=== PATIENT | male | born 1975 | race Caucasian/White ===

== ENCOUNTER 2019-05-12 12:31 | Emergency (ER) | payer MEDICARE, OTHER ==
[~2019-05-12] VITALS: Ht 177.8 cm; Wt 74.2 kg
[2019-05-12 12:36] VITALS: BP 129/68; PULSE 90; RESP 18; Ht 177.8 cm; Wt 74.2 kg
[2019-05-12] MEDS ORDERED: HYDROCODONE/APAP (5/325) TAB PO ONE (13:00)
[2019-05-12] MEDS ORDERED: CIPR500T4 PO (14:38)
[2019-05-12] MEDS ORDERED: IBUP-1542 PO (14:39)
[2019-05-12] MEDS ORDERED: ACET500C5 PO (14:48)
--- NOTE | 2019-05-12 15:03 | ERD ---
ER Documentation Chief Complaint Chief Complaint RT TESTICULAR PAIN X FEW WEEKS , WORSE TODAY HPI Patient is a 43-year-old male, past medical history of prostatitis, COPD, who presents to the ER for concerns of right testicular pain for last 3 weeks. Patient states he feels as if "my tubes are twisting". Patient states he has urinary urgency. He denies any frequency, hematuria, fevers, chills, nausea, vomiting or abdominal pain. Patient denies any chest pain or shortness of breath. Patient denies any penile discharge. ROS All systems reviewed and are negative except as per history of present illness. Medications Home Meds Active Scripts Acetaminophen* (Tylophen*) 500 Mg Capsule, 1 CAP PO Q6H PRN for PAIN AND OR ELEVATED TEMP, #20 CAP Prov:MARI CHATTERJEE PA-C 05/12/19 Ciprofloxacin Hcl* (Ciprofloxacin Hcl*) 500 Mg Tablet, 500 MG PO BID for 10 Days, TAB Prov:MARI CHATTERJEE PA-C 05/12/19 Discontinued Scripts Ibuprofen* (Motrin*) 600 Mg Tab, 600 MG PO Q6, #30 TAB Prov:MARI CHATTERJEE PA-C 05/12/19 Allergies Allergies: Coded Allergies: No Known Allergy (Unverified , 05/12/19) PMhx/Soc Hx Alcohol Use: No Hx Substance Use: No Hx Tobacco Use: No FmHx Family History: No diabetes Physical Exam Vitals Vital Signs Date Temp Pulse Resp B/P (MAP) Pulse Ox O2 O2 Flow FiO2 Time Delivery Rate 05/12/19 98.2 90 18 129/68 98 12:36 (88) Physical Exam GENERAL: Well-developed, well-nourished male. Appears in no acute distress. HEAD: Normocephalic, atraumatic. EYES: Pupils are equally reactive bilaterally. EOMs grossly intact. No conjunctival erythema. ENT: Poor dentition needed no teeth present. NECK: Supple. No meningismus. Normal range of motion of the neck. LUNG: Clear to auscultation bilaterally. No rhonchi, wheezing, rales or coarse breath sounds. HEART: Regular rate and rhythm. No murmurs, rubs or gallops. ABDOMEN: Soft, nontender, and nondistended. Positive bowel sounds in all four quadrants. No rebound tenderness, no guarding. (-) McBurney's point tenderness. No CVA tenderness. MALE GENITALIA: Neal, EMT present during this part of exam. Normal, circumcised penis without any lesions, masses or deformities. No penile discharge noted. Normal scrotum without any masses, tenderness, swelling or erythema. Minimal tenderness to the right testicle. No inguinal hernias. EXTREMITIES: Equal pulses bilaterally. No peripheral clubbing, cyanosis or edema. No unilateral leg swelling. NEUROLOGIC: Alert and oriented. Moving all four extremities without any difficulty. Normal speech. Steady gait. SKIN: Normal color. Warm and dry. No rashes or lesions. Results 24 hrs Laboratory Tests Test 05/12/19 13:12 Urine Color YELLOW Urine Clarity SLIGHTLY CLOUDY Urine pH 6.0 Urine Specific [place] 1.026 Urine Ketones TRACE mg/dL Urine Nitrite NEGATIVE mg/dL Urine Bilirubin NEGATIVE mg/dL Urine Urobilinogen 1+ mg/dL Urine Leukocyte Esterase NEGATIVE Mykel/ul Urine Microscopic RBC > 182 /HPF Urine Microscopic WBC 3 /HPF Urine Mucus FEW /HPF Urine Hemoglobin 3+ mg/dL Urine Glucose NEGATIVE mg/dL Urine Total Protein 1+ mg/dl Current Medications Medications Dose Sig/Yuli Start Time Status Last (Trade) Ordered Route PRN Stop Time Admin Dose Reason Admin 1 tab ONCE ONCE 05/12/19 DC 05/12/19 Acetaminophen PO 13:00 13:36 / 05/12/19 13:01 Hydrocodone Bitart ([place] (5/325)) Procedures/MDM ED COURSE: The patient was stable throughout ED course. I kept the patient and/or family informed of laboratory and diagnostic imaging results throughout the ED course. DIAGNOSTIC IMAGING: Read by radiologist. DIAGNOSTIC IMAGING REPORT Patient: REMA KERNS : 1975 Age: 43 Sex: M MR #: [id number] DOS: 05/12/19 1300 Ordering MD: MARI CHATTERJEE PA-C Location: [facility] Room/Bed: PROCEDURE: US Scrotum. CLINICAL INDICATION: Groin pain. TECHNIQUE: Multiple sonographic images of the scrotal region were obtained utilizing a linear array transducer with collado scale and color-flow and a Doppler imaging. COMPARISON: No prior studies are available for comparison. FINDINGS: The right testicle is normal in echogenicity and echotexture. Normal testicular blood flow. The right testicle measures 3.1 x 2.3 x 3.1 cm. Right epididymal head cysts measuring 7 mm and 3 mm. The right epididymis is otherwise normal in appearance. Small right hydrocele. The left testicle is normal in echogenicity and echotexture. Normal testicular blood flow. The left testicle measures 4.3 x 2.1 x 4.1 cm. Left epididymal head cyst measuring 4 mm. The left epididymis is otherwise normal in appearance. Small left hydrocele. No evidence of a varicocele. IMPRESSION: Normal appearance and blood flow in both testicles. Small bilateral hydroceles. RPTAT:AAJJ Physician Lali Date Time Electronically viewed and signed by Samantha Henry Physician on 05/12/2019 14 :18 MH/ CC: MARI CHATTERJEE PA-C [id number] PROCEDURES: None. MEDICATIONS GIVEN: [place] Patient tolerated medication well with no adverse reactions. Patient reported improvement in pain. MEDICAL DECISION MAKING: This is a 43-year-old male with history of prostatitis, COPD, presents to the ER for concerns of right testicular pain for last 3 weeks. Vital signs were reviewed. Patient was afebrile. Patient was not hypoxic. Physical exam points were unremarkable. Male EMT was present during this part of exam. Positive RBCs, positive blood. Patient had no flank pain. Patient stated his pain is localized to his testicles. Low suspicion for nephrolithiasis. Urine will be sent for culture as well as gonorrhea chlamydia testing. Culture pending. Testicular ultrasound was Normal appearance and blood flow in both testicles. Small bilateral hydroceles. Patient was treated with course of ciprofloxacin for concerns of prostatitis. Patient advised to follow-up with urologist. Referral information provided. At time of discharge, patient stated that his pain had returned. Patient was initially given [place] for pain. I offered the patient ibuprofen, however he refused. At that time, patient stated that he has numerous stomach ulcers and he cannot take ibuprofen. Of note, at time of initial exam, patient did not mention history of stomach ulcers. Cures report was obtained and showed that patient has received 4 narcotic prescriptions in the last month. Patient was given prescriptions for [place], oxycodone as well as tramadol. I explained to the patient that I will not give him any additional narcotic prescriptions. At that time, patient refused to sign the discharge summary and left ED. At this time, patient's presentation was consistent with testicular pain history of prostatitis. Low suspicion for pyelonephritis, nephrolithiasis, appe ndicitis, epididymitis, urethritis, orchitis, balanitis, phimosis, priapism, incarcerated hernia or strangulated hernia. PRESCRIPTIONS: Tylenol, Ciprofloxacin DISCHARGE: At this time, patient is stable for discharge and outpatient management. I have instructed the patient to follow-up with his/her primary care physician in 1-2 days. I have discussed with the patient the possibility of needing to see an green building design specialist for further workup and imaging if the pain persists. I have instructed the patient to promptly return to the ER for any new or worsening symptoms including increased pain, swelling, redness, warmth or fever. The patient and/or family expressed understanding of and agreement with this plan. All questions were answered. Home care instructions were provided. Departure Diagnosis: Primary Impression: Testicular pain Additional Impression: History of prostatitis Condition: Fair Patient Instructions: Testicular Pain, Unclear Cause Referrals: JESUS FLOR MD, BRIAN E LEFF, RICHARD G. MD [facility] YOU HAVE RECEIVED A MEDICAL SCREENING EXAM AND THE RESULTS INDICATE THAT YOU DO NOT HAVE A CONDITION THAT REQUIRES URGENT TREATMENT IN THE EMERGENCY DEPARTMENT. FURTHER EVALUATION AND TREATMENT OF YOUR CONDITION CAN WAIT UNTIL YOU ARE SEEN IN YOUR DOCTORS OFFICE WITHIN THE NEXT 1-2 DAYS. IT IS YOUR RESPONSIBILITY TO MAKE AN APPOINTMENT FOR FOLOW-UP CARE. IF YOU HAVE A PRIMARY DOCTOR --you should call your primary doctor and schedule an appointment IF YOU DO NOT HAVE A PRIMARY DOCTOR YOU CAN CALL OUR PHYSICIAN REFERRAL HOTLINE AT IF YOU CAN NOT AFFORD TO SEE A PHYSICIAN YOU CAN CHOSE FROM THE FOLLOWING [facility] [address] [facility] [address] [facility] [address] [facility] [address] [facility] [address] [facility] [facility] [address] [facility] [facility] YOU HAVE RECEIVED A MEDICAL SCREENING EXAM AND THE RESULTS INDICATE THAT YOU DO NOT HAVE A CONDITION THAT REQUIRES URGENT TREATMENT IN THE EMERGENCY DEPARTMENT. FURTHER EVALUATION AND TREATMENT OF YOUR CONDITION CAN WAIT UNTIL YOU ARE SEEN IN YOUR DOCTORS OFFICE WITHIN THE NEXT 1-2 DAYS. IT IS YOUR RESPONSIBILITY TO MAKE AN APPOINTMENT FOR FOLOW-UP CARE. IF YOU HAVE A PRIMARY DOCTOR --you should call your primary doctor and schedule and appointment IF YOU DO NOT HAVE A PRIMARY DOCTOR YOU CAN CALL OUR PHYSICIAN REFERRAL HOTLINE AT . IF YOU CAN NOT AFFORD TO SEE A PHYSICIAN YOU CAN CHOSE FROM THE FOLLOWING [facility] INSTITUTIONS: [facility] [address] [place] [address] [facility] [address] [place] [address] [facility] [address] [place] [address] Additional Instructions: Call your primary care doctor TOMORROW for an appointment during the next 1-2 days.See the doctor sooner or return here if your condition worsens before your appointment time. MARI CHATTERJEE PA-C May 12, 2019 15:03
== END 2019-05-12 15:05 | disposition home or self-care (01) ==
LOC: FTE 12:31
DX: N50.811 Right testicular pain (principal); J44.9 Chronic obstructive pulmonary disease, unspecified; Z87.438 Personal history of other diseases of male genital organs
CPT/HCPCS: 76870; 81001; 87086; 87591